=== PATIENT | female | born 1965 | race Caucasian/White ===

== ENCOUNTER 2021-12-27 12:18 | Emergency (ER) | payer OTHER ==
[~2021-12-27] VITALS: Ht 165.1 cm; Wt 78.0 kg
[2021-12-27 12:20] VITALS: BP_SYST 167
--- NOTE | 2021-12-27 12:20 | NUR ---
Patient to ER bed 08 to gown for evaluation. Side rails up.
--- NOTE | 2021-12-27 12:22 | NUR ---
Pt brought by self, A&Ox4, pt presents to ER with headache and high blood pressure, pt states she took a metoprolol last night and this am but BP continues to be high, skin pink and warm, cap refill <3, VSS, respirations even and unlabored.
--- NOTE | 2021-12-27 13:40 | NUR ---
Dr Rodrigues evaluating patient at bedside
[2021-12-27] MEDS ORDERED: NACL 0.9% 1,000 ML IV ONE (13:45)
[2021-12-27] MEDS ORDERED: LORazepam 2 MG/ML VIAL IVP ONE (13:45)
[2021-12-27] MEDS ORDERED: METOCLOPRAMIDE HCL 10 MG/2 ML VIAL IVP ONE (14:00)
[2021-12-27] MEDS ORDERED: MAG HYDROX/AL HYDROX/SIMETH 30 ML, LIDOCAINE VISCOUS 2% 15ML (PO) 15 ML, DICYCLOMINE HC... PO ONE ×3 (14:00)
[2021-12-27 14:10] LABS: BASOPHILS % (AUTO) 0.7 % (0.0-2.0); EOSINOPHILS # (AUTO) 0.3 K/uL (0.0-0.4); EOSINOPHILS % (AUTO) 4.1 % (0.0-4.0); HEMOGLOBIN 12.7 g/dL (12.0-16.0); LYMPHOCYTES # (AUTO) 1.8 K/uL (1.0-5.5); LYMPHOCYTES % (AUTO) 24.5 % (20.5-51.5); MEAN CORPUSCULAR HEMOGLOBIN 27 pg (27-31); MEAN CORPUSCULAR HGB CONC 33 % (32-36); MEAN CORPUSCULAR VOLUME 82 fL (79.0-98.0); MONOCYTES # (AUTO) 0.4 K/uL (0.0-1.0); MONOCYTES % (AUTO) 5.4 % (1.7-9.3); NEUTROPHILS # (AUTO) 4.8 K/uL (1.8-7.7); NEUTROPHILS % (AUTO) 65.3 % (40.0-70.0); PLATELET COUNT (AUTO) 348 K/uL (130-430); RED BLOOD CELL COUNT(AUTO) 4.65 MIL/uL (4.2-6.2); WHITE BLOOD COUNT (AUTO) 7.3 K/uL (4.8-10.8)
[2021-12-27 14:27] LABS: ALANINE AMINOTRANSFERASE 27 U/L (12-78); ALBUMIN 3.9 g/dL (3.4-4.8); ASPARTATE AMINOTRANSFERASE 20 U/L (10-37); CALCIUM 9.1 mg/dL (8.4-11.0); CREATININE 0.75 mg/dL (0.55-1.30); GFR AFRICAN AMERICAN 103 mL/min (>90); GLUCOSE 94 mg/dL (70-99); POTASSIUM 3.8 mmol/L (3.5-5.1); SODIUM SERUM 139 mmol/L (136-145); TOTAL BILIRUBIN 0.2 mg/dL (0.0-1.0); UREA NITROGEN, BLOOD 11 mg/dL (8-21)
[2021-12-27 14:28] LABS: ANION GAP 7 (5-15); CHLORIDE 105 mmol/L (98-107)
--- NOTE | 2021-12-27 14:36 | NUR ---
Pt A&Ox4, no s/s of distress, skin pink and warm, cap refill <3.
[2021-12-27 15:44] VITALS: BP_SYST 125
--- NOTE | 2021-12-27 15:44 | NUR ---
Patient given written and verbal discharge instructions and verbalizes understanding. ER MD discussed with patient the results and treatment provided. Patient in stable condition. ID arm band removed. IV catheter removed intact and dressing applied, no active bleeding. NO RX given. Patient educated on pain management and to follow up with PMD. Pain Scale 0/10 Opportunity for questions provided and answered.
== END 2021-12-27 15:44 | disposition home or self-care (01) ==
LOC: SED 12:18
DX: I15.9 Secondary hypertension, unspecified (principal); F43.9 Reaction to severe stress, unspecified; K29.00 Acute gastritis without bleeding; G44.209 Tension-type headache, unspecified, not intractable; Z88.0 Allergy status to penicillin
CPT/HCPCS: 36415; 71045; 80053; 83880; 84484; 85025; 96361; 96374; 96375; 99285; J2001; J2060; J2765; J7030